=== PATIENT | female | born 1970 | race Caucasian/White ===

== ENCOUNTER 2019-02-08 20:44 | Emergency (ER) | payer OTHER ==
[2019-02-08 21:02] VITALS: BP 118/74
[2019-02-08] MEDS: Ibuprofen 600 MG Tab PO ONE (21:30)
--- NOTE | 2019-02-08 21:30 | EDM.PDOC ---
ED HPI GENERAL MEDICAL PROBLEM - General Chief Complaint: Upper Extremity Injury/Pain Stated Complaint: FELL DOWN STAIRS, BACK, LEFT SHOULDER PAIN Time Seen by Provider: 02/08/19 21:23 Source of Information: Reports: Patient, Family, RN Notes Reviewed - History of Present Illness INITIAL COMMENTS - FREE TEXT/NARRATIVE: 48-year-old female presents emergency department today complaint of shoulder pain and tailbone pain she slipped at home fell down a flight of stairs there was no loss of consciousness she only complains of pain in the 2 areas no bruising noted. States she was initially nauseated secondary to pain but that has improved left shoulder and lower back Pain Score (Numeric/FACES): 6 - Related Data Allergies Allergy/AdvReac Type Severity Reaction Status Date / Time acetaminophen [From Vicodin] Allergy Drowsiness Verified 02/08/19 21:10 diazepam [From Valium] Allergy Hyperactivi Verified 02/08/19 21:08 ty fentanyl Allergy Hallucinati Verified 02/08/19 21:08 ons hydrocodone [From Vicodin] Allergy Rash Verified 02/08/19 21:08 morphine Allergy Hallucinati Verified 02/08/19 21:08 ons Home Meds: Home Meds NK [No Known Home Meds] 08/17/15 [History] Past Medical History [employer] History: Reports: Fibroids, Neurological History: Reports: Migraines Psychiatric History: Reports: Anxiety - Infectious Disease History Infectious Disease History: Reports: Chicken Pox - Past Surgical History HEENT Surgical History: Reports: Myringotomy w Tube(s) Social & Family History - Tobacco Use Smoking Status *Q: Never Smoker - Caffeine Use Caffeine Use: Reports: Coffee, Soda - Recreational Drug Use Recreational Drug Use: No Review of Systems - Review of Systems Review Of Systems: See Below Respiratory: Reports: No Symptoms Cardiovascular: Reports: No Symptoms GI/Abdominal: Reports: Nausea Musculoskeletal: Reports: Shoulder Pain, Other (Tailbone pain) Skin: Reports: Bruising (Tailbone area) Neurological: Reports: No Symptoms ED EXAM, GENERAL - Physical Exam Exam: See Below Free Text/Narrative:: Examination of the left shoulder she is tender to palpation over the acromion she has approximately 30 abduction pain with internal and external rotation as well. Examination of the coccyx area she is tender to palpation over the bony prominence no paraspinal tenderness Exam Limited By: No Limitations General Appearance: Alert, WD/WN, No Apparent Distress Respiratory/Chest: No Respiratory Distress Course - Vital Signs Last Recorded V/S: Last Vital Signs Temp 97.7 F 02/08/19 21:00 Pulse 77 02/08/19 21:00 Resp 16 02/08/19 21:00 BP 118/74 02/08/19 21:00 Pulse Ox 97 02/08/19 21:00 - Orders/Labs/Meds Orders: Active Orders 24 hr Category Date Time Status Sacrum Coccyx Min 2V [CR] Stat Exams 02/08/19 21:26 Taken Shoulder Comp Lt [CR] Stat Exams 02/08/19 21:26 Taken Meds: Medications Discontinued Medications Generic Name Dose Route Start Last Admin Trade Name Isabel PRN Reason Stop Dose Admin Ibuprofen 600 mg 02/08/19 21:26 02/08/19 21:30 Motrin PO 02/08/19 21:27 600 mg ONETIME ONE Administration Departure - Departure Time of Disposition: 22:55 Disposition: Home, Self-Care 01 Condition: Fair Clinical Impression: Shoulder contusion Qualifiers: Encounter type: initial encounter Laterality: left Qualified Code(s): S40.012A - Contusion of left shoulder, initial encounter Coccyx contusion Qualifiers: Encounter type: initial encounter Qualified Code(s): S30.0XXA - Contusion of lower back and pelvis, initial encounter - Discharge Information Instructions: Tailbone Injury, Shoulder Pain, [id number] Referrals: PCP,None [Primary Care Provider] - Forms: ED Department Discharge Additional Instructions: Continue to use ibuprofen as needed for pain control, Please followup with your primary care provider in 3-5 days if not better, please call return to the emergency department with worsening of symptoms. - My Orders Last 24 Hours: My Active Orders 02/08/19 21:26 Sacrum Coccyx Min 2V [CR] Stat Shoulder Comp Lt [CR] Stat - Assessment/Plan Last 24 Hours: My Active Orders 02/08/19 21:26 Sacrum Coccyx Min 2V [CR] Stat Shoulder Comp Lt [CR] Stat Plan: Assessment Acuity = acute Site and laterality = left shoulder contusion with contusion to the coccyx Etiology = secondary to a fall Manifestations = concern for muscle and/or tendon damage Location of injury = Home Lab values = x-rays of the shoulder and coccyx showed no acute process Plan I did review x-ray results were also reviewed the possibility of tendon damage or further muscle damage she is going to do her own physical therapy at home use Motrin as needed for pain control follow-up primary care in 2-3 days if no improvement This note was dictated using [employer] voice recognition software please call with any questions on syntax or grammar.
--- NOTE | 2019-02-10 08:51 | CRLCR ---
Final Report: INDICATION: Pain after fall COMPARISON: None available. FINDINGS: The left shoulder was examined with AP internal and external rotation and outlet views for a total of three views. The osseous structures are in anatomic alignment without fracture or dislocation. There is anatomic alignment of the humeral head and glenoid. The visualized chest is clear. IMPRESSION: Normal left shoulder. Dictated by Sulaiman Steward MD @ Feb 08 2019 10:44PM Signed by: Sulaiman Steward MD @02/08/2019 10:45:50 PM (Electronic Signature MTDD
--- NOTE | 2019-02-10 08:54 | CRLCR ---
Final Report: INDICATION: HISTORY COMPARISON: None available. TECHNIQUE: The sacrum and coccyx were examined with AP, PA and lateral views for a total of 3 views. FINDINGS: There is no sign of fracture, dislocation, or destructive lesion in the sacrum or coccyx. There is no sign of erosion or degenerative disease involving the SI joints. The visualized soft tissues of the pelvis are normal in appearance. IMPRESSION: Normal sacrum and coccyx. Dictated by Sulaiman Steward MD @ Feb 08 2019 10:44PM Signed by: Sulaiman Steward MD @02/08/2019 10:46:53 PM (Electronic Signature) MTDD
== END 2019-02-08 22:59 | disposition home or self-care (01) ==
LOC: JP.ED 20:44
DX: S40.012A Contusion of left shoulder, initial encounter (principal); S30.0XXA Contusion of lower back and pelvis, initial encounter; F41.9 Anxiety disorder, unspecified; Z88.8 Allergy status to other drugs, medicaments and biological substances; Z88.5 Allergy status to narcotic agent; W10.9XXA Fall (on) (from) unspecified stairs and steps, initial encounter
CPT/HCPCS: 72220; 73030; 99283; A9270